=== PATIENT | male | born 1940 | race Two or more races ===

== ENCOUNTER → 2016-12-24 19:53 | Emergency (ER) | payer SELFPAY ==
[~2016-12-24 19:53] MED LIST: Amiodarone 150 MG IVPREMIX* 150 MG/100 ML BAG IV ONE; CALCIUM GLUCONATE* 1 GM/10 ML VIAL (in Pyxis) ONE; Dextrose 50% Syringe 50 ML* 25 GM/50 ML SYRINGE IV PUSH ONE; Heparin 2 UNITS/ML IVPREMIX* 0 ML IV ONE; Insulin REGULAR(*) 1 UNITS UNIT IV PUSH ONE; Iodixanol* (CONTRAST) 320 MG/ML 100 ML SDV IV ONE; Iohexol 350 (CONTRAST) 200 ML MDV IV ONE; Lidocaine 1% INJ* 10 MG/ML 30 ML SDV ONE; Midazolam* 1 MG/ML 5 ML VIAL (5 MG) ONE; fentaNYL* 50 MCG/ML 2 ML VIAL (100 MCG VIAL) ONE; nitroGLYCERIN DRIP* 0 ML ONE
[2016-12-24 20:15] LABS: Hematocrit 42 % (42-52); Hemoglobin 13.9 g/dl (14.0-18.0); Mean Corpuscular HGB Conc 33 g/dl (31-36); Mean Corpuscular Hemoglobin 29 pg (27-31); Mean Corpuscular Volume 87 fL (80-94); Mean Platelet Volume 9 um3 (7.4-10.4); Red Blood Count 4.86 10^6/ul (4.0-5.4); Red Cell Distribution Width 16 % (10.5-15); White Blood Count 11.4 10^3/ul (3.5-10.8)
[2016-12-24 20:31] LABS: ALT 27 U/L (7-52); AST 31 U/L (13-39); Albumin 3.4 g/dL (3.2-5.2); Alkaline Phosphatase 77 U/L (34-104); BUN/Creatinine Ratio 14.7 (8-20); Blood Urea Nitrogen 107 mg/dL (6-24); CO2 Carbon Dioxide 15 mmol/L (22-32); Calcium 9.6 mg/dL (8.6-10.3); Chloride 89 mmol/L (101-111); Creatine Kinase 103 U/L (10-223); EGFR African American 9.5 (>60); EGFR Non-African American 7.4 (>60); Globulin 2.8 g/dL (2-4); Glucose 174 mg/dL (70-100); Sodium 120 mmol/L (133-145); Total Protein 6.2 g/dL (6.4-8.9)
[2016-12-24 20:33] LABS: Anion Gap 16 mmol/L (2-11); Potassium 6.4 mmol/L (3.5-5.0)
[2016-12-24 20:38] LABS: Alcohol < 10 mg/dL (<10)
[2016-12-24 20:49] LABS: Magnesium 2.6 mg/dL (1.9-2.7)
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
[2016-12-24 21:17] LABS: Erythrocyte Sed Rate 24 mm/Hr (0-40); Troponin I 0.03 ng/mL (<0.04)
[2016-12-24 21:32] VITALS: BP 138/86
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
== END | disposition short-term general hospital (02) ==
LOC: ED 19:53
DX: S37.29XA Other injury of bladder, initial encounter (principal); E87.5 Hyperkalemia; N19 Unspecified kidney failure; V49.9XXA Car occupant (driver) (passenger) injured in unspecified traffic accident, initial encounter; Y93.9 Activity, unspecified; Y92.89 Other specified places as the place of occurrence of the external cause; Z92.21 Personal history of antineoplastic chemotherapy
CPT/HCPCS: 36415; 70450; 71260; 72125; 74177; 80053; 80320; 82550; 82553; 83605; 83735; 84484; 85025; 85610; 85652; 86141; 93005; 99284; G0480; J0282; J0610; J1644; J2001; J2250; J3010; Q9967

== ENCOUNTER 2017-01-18 18:01 | Emergency (ER) | payer MEDICARE, OTHER ==
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
[2017-01-18 19:40] VITALS: BP 100/69
== END 2017-01-18 19:41 | disposition left against medical advice (07) ==
LOC: UCCORT 18:01
DX: M54.9 Dorsalgia, unspecified (principal); I95.9 Hypotension, unspecified; R00.0 Tachycardia, unspecified; Z87.891 Personal history of nicotine dependence; Z79.82 Long term (current) use of aspirin
CPT/HCPCS: 99212; G0463

== ENCOUNTER 2017-01-18 20:19 | Emergency (ER) | payer OTHER ==
[2017-01-18] MEDS ORDERED: Ketorolac INJ* 60 MG/2 ML VIAL IM ONE (21:48)
[2017-01-18] MEDS ORDERED: LORazepam TAB(*) 1 MG PO ONE (21:48)
[2017-01-18 22:32] LABS: Urine Bacteria Absent (Absent); Urine Bilirubin Negative (Negative); Urine Glucose Negative (Negative); Urine Nitrite Negative (Negative)
[2017-01-18] MEDS ORDERED: Ciprofloxacin TAB* 500 MG PO ONE ×3 (22:52→23:21)
[2017-01-18] MEDS ORDERED: CIPROFLOXACIN 400 MG IVPB ONE (23:00)
[2017-01-18 23:24] LABS: Hematocrit 39 % (42-52); Hemoglobin 12.8 g/dl (14.0-18.0); Mean Corpuscular HGB Conc 33 g/dl (31-36); Mean Corpuscular Hemoglobin 29 pg (27-31); Mean Corpuscular Volume 87 fL (80-94); Mean Platelet Volume 7 um3 (7.4-10.4); Red Blood Count 4.47 10^6/ul (4.0-5.4); Red Cell Distribution Width 15 % (10.5-15)
[2017-01-18 23:47] LABS: BUN/Creatinine Ratio 23.3 (8-20); C Reactive Protein 27.28 mg/L (< 5.00); Calcium 8.5 mg/dL (8.6-10.3); EGFR African American 135.1 (>60); Potassium 4.3 mmol/L (3.5-5.0); Total Bilirubin 0.5 mg/dL (0.2-1.0)
[2017-01-19 00:45] VITALS: BP 112/86
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
== END 2017-01-19 00:44 ==
LOC: ED 20:19
DX: N39.0 Urinary tract infection, site not specified (principal); N12 Tubulo-interstitial nephritis, not specified as acute or chronic; Z85.820 Personal history of malignant melanoma of skin; Z87.891 Personal history of nicotine dependence
CPT/HCPCS: 36415; 72131; 80053; 81003; 81015; 85025; 86140; 87077; 87086; 87186; 96372; 99283; A9270-GY; J1885

== ENCOUNTER 2017-04-02 12:23 | Emergency (ER) | payer MEDICARE ==
[2017-04-02 12:55] VITALS: BP 98/68
--- NOTE | 2017-04-02 14:22 | UC ---
Complaint Male HPI - HPI Summary HPI Summary: Patient presents with complaints of decreased marin catheter output since last night. He also notes that he has notice increased sediment in the bag as well. He denies fever, chills, nausea, vomiting, flank or abdominal pain. He is scheduled to see Dr. King in two weeks for follow up and evaluation for prostate surgery. - History of Current Complaint Chief Complaint: UCGU Stated Complaint: URINARY ISSUE Time Seen by Provider: 04/02/17 13:26 Hx Obtained From: Patient Onset/Duration: Gradual Onset, Lasting Days Timing: Constant Severity Initially: Mild Severity Currently: Mild Location: Suprapubic Character: Constant Pressure Aggravating Factor(s): Other - catheter not draining. Associated Signs And Symptoms: Positive: Negative - Risk Factors Testicular Torsion: Negative - Allergies/Home Medications Allergies/Adverse Reactions: Allergies Allergy/AdvReac Type Severity Reaction Status Date / Time Bee Venom Allergy Severe Swelling Verified 01/18/17 19:01 Of Face,Lips,& Throat PMH/Surg Hx/FS Hx/Imm Hx Previously Healthy: Yes - Surgical History Surgical History: Yes Surgery Procedure, Year, and Place: Melanoma excision left shoulder and lymph nodes from left axilla. PowerPort placement 05/2016. Bladder Rupture 12/2016 - Family History Known Family History: Negative: Cardiac Disease, Renal Disease - Social History Occupation: Retired Lives: Alone Alcohol Use: None Substance Use Type: None Smoking Status (MU): Former Smoker Review of Systems Constitutional: Negative Skin: Negative Eyes: Negative ENT: Negative Respiratory: Negative Cardiovascular: Negative Gastrointestinal: Negative Genitourinary: Other - urinary retention Motor: Negative Neurovascular: Negative Musculoskeletal: Negative Neurological: Negative Psychological: Negative All Other Systems Reviewed And Are Negative: Yes Physical Exam Triage Information Reviewed: Yes Vital Signs: Initial Vital Signs Temp 98.1 F 04/02/17 12:44 Pulse 111 04/02/17 12:44 Resp 16 04/02/17 12:44 BP 98/68 04/02/17 12:44 Pulse Ox 98 04/02/17 12:44 Eye Exam: Normal ENT Exam: Normal Neck exam: Normal Neck: Positive: 1 Respiratory Exam: Normal Cardiovascular Exam: Normal Abdominal Exam: Normal Musculoskeletal Exam: Normal Neurological Exam: Normal Psychological Exam: Normal Skin Exam: Normal Complaint Male Course/Dx - Course Course Of Treatment: Patient present with marin catheter in place for one month due to BPH. He is scheduled to see Dr. King in two weeks. In the meantime he has been having sediment and decreased marin drainage. He was told to come to the Urgent care and have the catheter replaced. He has a 18 georgian on arrival, we did not have an 18 georgian, so he agreed to a 16 frech which was changed without incidence. He was instructed to follow up as scheduled. A ua was no obtained as the UA would be contaminated. He does not have any symtpoms consistent with urosepsis. Normal vital signs, and afebile. - Differential Dx/Diagnosis Differential Diagnosis/HQI/PQRI: Other - marin catheter care Provider Diagnoses: marin catheter care Discharge - Discharge Plan Condition: Stable Disposition: HOME Patient Education Materials: Marin Catheter Placement and Care (ED) Referrals: Miriam Campos NP [Primary Care Provider] -
== END 2017-04-02 14:47 | disposition home or self-care (01) ==
LOC: UCEAST 12:23
DX: Z46.6 Encounter for fitting and adjustment of urinary device (principal)
CPT/HCPCS: 99211; G0463

== ENCOUNTER → 2018-04-22 10:06 | Day surgery (SDC) | payer MEDICARE ==
[~2018-04-22 10:06] MED LIST changes: -Amiodarone 150 MG IVPREMIX* 150 MG/100 ML BAG IV ONE; -CALCIUM GLUCONATE* 1 GM/10 ML VIAL (in Pyxis) ONE; -Dextrose 50% Syringe 50 ML* 25 GM/50 ML SYRINGE IV PUSH ONE; +Flumazenil* 0.1 MG/ML 5 ML MDV ONE; -Heparin 2 UNITS/ML IVPREMIX* 0 ML IV ONE; +Heparin 2 UNITS/ML IVPREMIX* 2,000 ML IV ONE; -Insulin REGULAR(*) 1 UNITS UNIT IV PUSH ONE; +Iodixanol 320 (CONTRAST) 100 ML SDV ONE; -Iodixanol* (CONTRAST) 320 MG/ML 100 ML SDV IV ONE; +Ketorolac INJ* 30 MG/ML 1 ML VIAL ONE; +LORazepam TAB(*) 1 MG ONE; +Midazolam* 1 MG/ML 10 ML VIAL (10 MG) ONE; -Midazolam* 1 MG/ML 5 ML VIAL (5 MG) ONE; +Naloxone* 0.4 MG/ML 1 ML VIAL ONE; +Ondansetron INJ* 2 MG/ML VIAL ONE; +nitroGLYCERIN DRIP* 0 MCG/0 ML BTL ONE; -nitroGLYCERIN DRIP* 0 ML ONE
[2018-04-22 11:45] LABS: INR 0.9 (0.77-1.02)
[2018-04-22 11:48] LABS: EGFR Non-African American 63.9 (>60)
[2018-04-22 16:39] VITALS: BP 147/108
--- NOTE | 2018-04-23 17:54 | RAD ---
CPT II Codes: G9500 Procedures performed: 1. Superior vena cavogram and venography of the left central veins. 2. Balloon angioplasty of the left brachiocephalic, left subclavian and left axillary veins. 3. Removal of left subclavian vein Mediport. Date of service: April 22, 2018 Indication for procedure: 1. Fractured left subclavian vein Mediport in a patient with a history of melanoma. 2. 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 Comparison: Left subclavian vein port study dated April 04, 2018 Contrast: 40 mL of Visipaque 320 Fluoroscopy Time: 11 minutes Vessels Accessed & Imaged: Percutaneous access was obtained with ultrasound guidance in the right common femoral vein in the antegrade direction (i.e., towards the heart). A sonographic image was recorded. The left subclavian vein Mediport was accessed and injected directly as well. Catheter venography was performed with the catheter tip located in the superior vena cava, left subclavian vein and left axillary vein. Catheter venography was acquired of the superior vena cava and left central veins including the brachiocephalic vein, left subclavian vein and left axillary vein. Anesthesia: Conscious sedation was provided by intravenous fentanyl and Versed. Continuous cardiopulmonary monitoring was performed by Dr. Tejeda and the interventional radiology nurse. 1% lidocaine injected locally at the venotomy site. Conscious sedation time: Timeout: 1311 hours Case and: 1444 hours Conscious sedation time: 1 hour and 33 minutes Additional medications: None Procedure narration and imaging findings: Prior to the procedure the risk, benefits and alternative therapies were carefully explained and informed consent was obtained from the patient. The patient was appropriately positioned on the table in the angiography suite. A formal time out was performed and all members of the team and the patient agreed to the patient, procedure and laterality. Preliminary ultrasound indicated a patent right common femoral vein. The skin overlying the right common femoral vein and overlying the left upper chest Mediport was prepped and draped in standard sterile fashion. Sterile precautions were employed including use of cap, mask, gown and sterile gloves. The skin overlying the femoral vein was anesthetized with 1% lidocaine. Real time ultrasound imaging shows the femoral vein is patent and determined to be adequate for cavography and venography. Utilizing real time ultrasound visualization the femoral vein was accessed with an 18 gauge needle. An image was recorded and saved confirming appropriate intraluminal position of the needle tip. Blood return further confirmed position. Under fluoroscopic control a 0.035" wire was advanced to the superior vena cava. The needle was removed, exchanged for a 7 [place] access sheath and a 5 [place] curved tip catheter was advanced over the 0.035 inch Bentson wire to the superior vena cava. Preliminary imaging of the left upper chest again demonstrates the left subclavian vein Mediport with at least 2 kinks in the catheter and the tip retracted into the left brachiocephalic vein. This appearance is stable compared to the April 04, 2018 Mediport study. The wire was removed and contrast was injected with the tip of the catheter in the superior vena cava to locate the ostium of the left brachiocephalic vein. This first injected demonstrated stenosis at the medial most margin of the left brachiocephalic vein. Utilizing a combination of a 0.035 inch hydrophilic wire and the 5-[place] curved tip catheter the wire and catheter were advanced to the left axillary vein. The wire was removed and contrast venography through the catheter with the tip in the left axillary vein demonstrates wide patency of the axillary vein with reflux into the cephalic vein and other venous collaterals overlying the left shoulder. There is essentially occlusion at the left subclavian vein where the Mediport catheter enters the vein. More delayed imaging shows slow flow in the peripheral portion of the axillary vein and pooling of contrast in the left upper chest venous collaterals with slow return of the injected contrast to the SVC via the collaterals. At this point the procedure access across the occluded left subclavian vein was secured with the hydrophilic wire and 5-[place] catheter. The catheter wire were secured in position and the groin was covered with a sterile drape. At this point attention was turned to removal of the left upper chest Mediport. The goal of the procedure was 2 remove the Mediport is entirety and avoid necessitating snare capture of the fractured Mediport catheter. LEFT UPPER CHEST The skin overlying the mediport was anesthetized with 1% lidocaine. An incision was made just above the palpated mediport. Utilizing blunt dissection the the Mediport was located and exposed. An 18-gauge needle was inserted into the port and contrast venography was performed again demonstrating leakage of contrast in the left subclavian vein soft tissues just outside the left subclavian venotomy. Contrast is also seen exiting the catheter at its distal portion indicating fracture of the catheter and there is also a small amount of contrast leaving the tip as well. Filling defects surrounding the catheter are consistent with fibrin sheath formation as was seen on the prior catheter study. The needle was removed, the port more thoroughly dissected and the Mediport was removed in its entirety taking care to secure the catheter still located in the left upper chest subcutaneous tissue and the left subclavian vein. Attempt was made to wire cannulate the catheter unsuccessfully as there was a highly stenotic portion of the catheter at the midportion that the wire would not pass. The superficial most portion of the catheter was gently dissected and under fluoroscopic control the catheter was mobilized and removed from the body intact under fluoroscopic control. Gross inspection of the mediport, cuff and catheter indicated that all portions had been removed entirely. The "0 end" of the catheter was identified indicating no portion of the catheter remained in the patient's body. Inspection of the catheter shows multiple fractures in the midportion and central most third of the catheter as well as a tight kink in the lateral third of the catheter. The pocket was flushed with copious amounts of sterile saline and inspected for any significant bleeding. Satisfied there was no significant bleeding the incision was sutured closed with interrupted 3-0 polyfilament absorbable suture. The incision was sealed with Mastisol and Steri-Strips. After that was allowed to dry, the site was dressed with sterile gauze and Tegaderm. RIGHT COMMON FEMORAL VENOTOMY With the Mediport removed in its entirety and hemostasis achieved at the left upper chest and subclavian venotomy, we returned to the patient's right common femoral venotomy to reestablish patency of the occluded left subclavian vein. Over the previously placed 0.035 inch wire a 5 mm x 120 mm Biotronik balloon was advanced across the stenotic and occluded left subclavian and axillary veins and balloon angioplasty was performed. Multiple stenoses were visible in the course of inflation. The balloon was inflated just below burst pressure corresponding to an approximate diameter of 5.5 mm. The balloon remained inflated for a total of 3 minutes to address vasospasm. The patient did not express much discomfort during balloon angioplasty indicating a larger caliber balloon could be utilized. A 5 mm balloon was removed and replaced with an 8 mm x 80 mm Biotronik balloon. Balloon angioplasty was performed across the left brachiocephalic vein, subclavian vein and axillary vein. The balloon was inflated just below burst pressure corresponding to a diameter measurement of approximately 8.5 mm. During each of the 2 inflations the balloon remained inflated for 3 minutes to address vasospasm. Over the wire the catheter was reinserted into the axillary vein and contrast venography was performed which demonstrated improved patency through the previously occluded left subclavian vein though collaterals were still filling to a certain extent. The 8 mm balloon was reinserted and balloon angioplasty was performed a second time across the left subclavian vein for a total of 3 minutes. A final venogram demonstrated improved patency through the subclavian vein and no evidence of active extravasation. The catheter and wire were removed together. The sheath was then removed and direct pressure was held on the common femoral vein access site for 15 minutes. The site was dressed with sterile gauze and the patient left the angiography suite in stable condition. SUMMARY OF PROCEDURE AND IMAGING FINDINGS: 1. Diagnostic studies performed: * Venous access was obtained at the right common femoral vein in the antegrade direction (i.e. towards the heart) with ultrasound guidance. A sonographic image was recorded. * Diagnostic catheter superior vena cavography and and venography of the left brachiocephalic vein, left subclavian vein and left axillary vein including branch collaterals. * Contrast was injected into the left subclavian vein Mediport. * Catheter venography was performed with the catheter tip in the following veins: * Inferior vena cava * Left brachiocephalic vein * Left subclavian vein * Left axillary vein 2. 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 The subclavian vein occlusion is further supported by filling of superficial venous collaterals when injecting the left axillary vein. * As was seen on the prior Mediport contrast study, there is fibrin sheath formation around the catheter. * Fracture of the catheter is evidenced by contrast leaking from the side of the catheter and into the subcutaneous tissue adjacent to the subclavian vein when injecting the Mediport. This imaging finding was later confirmed during direct visual inspection of the removed Mediport catheter. 3. Surgical interventions performed: * Removal of left subclavian vein Mediport in its entirety. * Balloon angioplasty of the left brachiocephalic vein, left subclavian vein and midline left axillary vein with a 5 mm x 120 mm Biotronik balloon followed by a 8 mm x 80 mm Biotronik balloon. The 8 mm balloon was inflated just beneath the burst pressure corresponding to an approximate diameter of 8.5 mm. 4. Interpretation of interventions performed: * The Mediport was removed in its entirety as demonstrated with live fluoroscopy. Direct visual inspection confirmed or fracture at the intravascular midline portion of the catheter. * Following balloon venoplasty there was protestant of flow through the occluded left subclavian vein with flow documented through the previously stenotic portions of the left axillary vein, left subclavian vein and left brachiocephalic vein. Plan: In approximately 2 weeks the patient will receive a new Mediport, likely in one of the internal jugular veins, so he can continue his melanoma chemotherapy.
== END | disposition home or self-care (01) ==
LOC: CHICATH 10:06
PROVIDERS: ATTEND Radiology Diagnostic Radiology
DX: T82.898A Other specified complication of vascular prosthetic devices, implants and grafts, initial encounter (principal); C43.59 Malignant melanoma of other part of trunk; Z87.891 Personal history of nicotine dependence; K21.9 Gastro-esophageal reflux disease without esophagitis; E78.5 Hyperlipidemia, unspecified; I10 Essential (primary) hypertension; E05.90 Thyrotoxicosis, unspecified without thyrotoxic crisis or storm; Y82.8 Other medical devices associated with adverse incidents; Y92.9 Unspecified place or not applicable
CPT/HCPCS: 36415; 36590; 37249; 76937; 80048; 85610; 85730; 88300; 99156; 99157; A9270-GY; C1725; C1769; C1887; J1644; J1885; J2250; J2310; J2405; J3010

== ENCOUNTER 2019-01-11 13:16 | Emergency (ER) | payer MEDICARE ==
--- NOTE | 2019-01-11 14:03 | ED ---
Dizziness - HPI Summary HPI Summary: Pt is an 78 y/o M presenting to the ED with a chief complaint of fatigue. He states he has become steadily more fatigued over the past week, and he is pale. No chest pain, shortness of breath. He denies rectal bleeding, abd pain, vomiting, CP, and SOB. He notes hx of melanoma with metastasis to his stomach, intestines, and L lung. He has been through 3 rounds of chemotherapy, and is about to start his fourth. He had lab work done his primary care doctor earlier showing Hb 7.4. - History Of Current Complaint Chief Complaint: EDWeakness Stated Complaint: LIGHT HEADEACE , ABD PIAN, Time Seen by Provider: 01/11/19 13:33 Hx Obtained From: Patient Onset/Duration: Still Present, Gradually Timing: Hours Severity Initially: Moderate Severity Currently: Moderate Character: Weak Aggravating Factor(s): Nothing Alleviating Factor(s): Nothing Associated Signs And Symptoms: Positive: Other: - pale. Negative: Vomiting, Chest Pain, SOB - Allergies/Home Medications Allergies/Adverse Reactions: Allergies Allergy/AdvReac Type Severity Reaction Status Date / Time bee venom protein (honey bee) Allergy Anaphylatic Verified 10/27/18 13:59 Shock Home Medications: Home Medications Aspirin EC TAB* [Ecotrin EC Low Dose 81 MG*] 81 mg PO DAILY 01/11/19 [History Confirmed 01/11/19] Ferrous Sulfate TAB* 325 mg PO DAILY 01/11/19 [History Confirmed 01/11/19] Hydrochlorothiazide TAB* [Hydrodiuril TAB*] 25 mg PO DAILY 01/11/19 [History Confirmed 01/11/19] Ibuprofen TAB* [Motrin TAB* 600 MG] 600 mg PO Q6H PRN 01/11/19 [History Confirmed 01/11/19] Levothyroxine TAB* [Synthroid TAB*] 125 mcg PO DAILY 01/11/19 [History Confirmed 01/11/19] Naproxen TAB* [Naprosyn 250 mg TAB*] 500 mg PO Q8H PRN 01/11/19 [History Confirmed 01/11/19] Ondansetron TAB* [Zofran 4 MG Tab*] 8 mg PO Q6H PRN 01/11/19 [History Confirmed 01/11/19] Prochlorperazine TAB* [Compazine Tab*] 10 mg PO Q6H PRN 01/11/19 [History Confirmed 01/11/19] Ranitidine TAB (NF) [Zantac TAB (NF)] 150 mg PO BID 01/11/19 [History Confirmed 01/11/19] oxyCODONE TAB* [Roxycodone TAB 5 mg*] 5 mg PO Q6H PRN 01/11/19 [History Confirmed 01/11/19] traZODone TAB* [Desyrel TAB*] 50 - 100 mg PO BEDTIME PRN 01/11/19 [History Confirmed 01/11/19] PMH/Surg Hx/FS Hx/Imm Hx Previously Healthy: Yes Endocrine/Hematology History: Denies: Hx Diabetes Cardiovascular History: Reports: Hx Hypertension Denies: Hx Pacemaker/ICD Respiratory History: Denies: Hx Chronic Obstructive Pulmonary Disease (COPD) History: Denies: Hx Dialysis, Hx Renal Disease Sensory History: Denies: Hx Hearing Aid Psychiatric History: Denies: Hx Panic Disorder - Cancer History Cancer Type, Location and Year: Melanoma 05/2016 Hx Chemotherapy: No Hx Radiation Therapy: No - Surgical History Surgery Procedure, Year, and Place: Melanoma excision left shoulder and lymph nodes from left axilla. PowerPort placement 05/2016 AND REPLACED 07/2018. Bladder Rupture 12/2016. PROSTECTOMY 04/2017 Infectious Disease History: No Infectious Disease History: Denies: Traveled Outside the [place] in Last 30 Days - Family History Known Family History: Negative: Cardiac Disease, Renal Disease - Social History Alcohol Use: None Hx Substance Use: No Substance Use Type: Reports: None Hx Tobacco Use: Yes Smoking Status (MU): Former Smoker Review of Systems Positive: Fatigue Negative: Chest Pain Negative: Shortness Of Breath Negative: Abdominal Pain, Vomiting, Other - rectal bleeding Positive: Other - pale All Other Systems Reviewed And Are Negative: Yes Physical Exam - Summary Physical Exam Summary: Constitutional: elderly male, NAD Skin: Warm, Dry, well-healed incision to L thoracic back HENT: Normocephalic; Atraumatic Eyes: Conjunctiva pale Neck: Musculoskeletal ROM normal neck. (-) JVD, (-) Stridor Cardio: Rhythm regular, rate normal, Heart sounds normal; Intact distal pulses; Radial pulses are 2+ and symmetric. (-) Murmur Pulmonary/Chest wall: Effort normal. (-) Respiratory distress, (-) Wheezes, (-) Rales Abd: Soft, (-) tenderness, (-) Distension, (-) Guarding, (-) Rebound Musculoskeletal: Port to right chest wall without erythema or tenderness. (-) Edema Lymph: (-) Cervical adenopathy Neuro: Alert, Oriented x3 Psych: Mood and affect Normal Triage Information Reviewed: Yes Vital Signs On Initial Exam: Initial Vitals Temp Pulse Resp BP Pulse Ox 99.3 F 102 14 82/56 96 01/11/19 13:17 01/11/19 13:17 01/11/19 13:17 01/11/19 13:17 01/11/19 13:17 Vital Signs Reviewed: Yes Diagnostics - Vital Signs Vital Signs Temp Pulse Resp BP Pulse Ox 01/11/19 13:17 99.3 F 102 14 82/56 96 - Laboratory Result Diagrams: 01/11/19 14:19 Lab Statement: Any lab studies that have been ordered have been reviewed, and results considered in the medical decision making process. - EKG 1339 Cardiac Rate: Tachycardia - 101bpm EKG Rhythm: Sinus Tachycardia ST Segment: Normal Ectopy: None Summary of EKG Findings: EKG at 1339 shows sinus tachycardia at 101bpm with old LBBB, nml axis, nml intervals, no STEMI, and no acute changes. Dizzy Course/Dx - Course Course Of Treatment: 78-year-old male with a history of metastatic melanoma on active chemotherapy presents with fatigue. - Physical exam of pill conjunctiva , topically hemoglobin 7.4 down from prior of 8.8 2 weeks ago. Patient reports that his baseline is around 10. No active signs of bleeding noted on exam patient denies rectal bleeding. Plan for admit to oncology service and transfusion given that patient is symptomatic. Will also check troponin for evidence of end organ damage. EKG shows old left bundle branch block - Diagnoses Provider Diagnoses: Anemia, Fatigue Discharge - Sign-Out/Discharge Documenting (check all that apply): Patient Departure - Discharge Plan Condition: Stable Disposition: ADMITTED TO [facility] Referrals: Amita Leigh NP [Primary Care Provider] - - Billing Disposition and Condition Condition: STABLE Disposition: Admitted to [facility] - Attestation Statements Document Initiated by Scribe: Yes Documenting Scribe: Tessie Joshi Provider For Whom Scribe is Documenting (Include Credential): Yokasta Montesinos MD. Scribe Attestation: ITessie, scribed for Yokasta Montesinos MD. on 01/11/19 at 1453. Scribe Documentation Reviewed: Yes Provider Attestation: The documentation as recorded by the scribe, Tessie Joshi accurately reflects the service I personally performed and the decisions made by me, Yokasta Montesinos MD. Status of Scribe Document: Viewed Consult Consult: 1404 - Dr. Wright aware of the patient. 1448 - Dr. Wright accepts pt to [facility] [place].
[2019-01-11 14:51] LABS: Albumin 2.8 g/dL (3.2-5.2); Albumin/Globulin Ratio 1.1 (1-3); BUN/Creatinine Ratio 23.9 (8-20); Calcium 8.1 mg/dL (8.6-10.3); EGFR African American 130.5 (>60); EGFR Non-African American 107.9 (>60); Globulin 2.5 g/dL (2-4); Potassium 3.7 mmol/L (3.5-5.0); Total Bilirubin 0.3 mg/dL (0.2-1.0); Total Protein 5.3 g/dL (6.4-8.9); Troponin I 0.01 ng/mL (<0.04)
--- NOTE | 2019-01-11 17:18 | PN ---
Progress Note - Progress Note Date of Service: 01/11/19 SOAP: Subjective: []Presented to the ER today d/t feeling lightheaded and faint. "Like someone opened the drain and let half out." Denies chest pain and pressure. No overt SOB, but no energy to do much. No HAs. No falls. Intermittent abd. pain. Hmg on AM labs <8 and received 1 unit PRBCs in ER. "I feel a lot better." Initially told ER team he wanted to stay in hospital, however to this chief underwriter states he feels safe to go home. "What would you do for me here....? Do I need to stay?" Home Medications: Medication Instructions Recorded Confirmed Type Finasteride TAB* [Proscar TAB*] 5 mg PO DAILY 12/24/16 01/11/19 History Lisinopril TAB* [Prinivil TAB*] 10 mg PO DAILY 12/24/16 01/11/19 History Pravastatin (NF) [Pravachol (NF)] 20 mg PO 1700 12/24/16 01/11/19 History LORazepam TAB(*) [Ativan 0.5 MG 0.5 mg PO TID PRN 01/18/17 01/11/19 History TAB (*)] Aspirin EC TAB* [Ecotrin EC Low 81 mg PO DAILY 01/11/19 01/11/19 History Dose 81 MG*] Ferrous Sulfate TAB* 325 mg PO DAILY 01/11/19 01/11/19 History Hydrochlorothiazide TAB* 25 mg PO DAILY 01/11/19 01/11/19 History [Hydrodiuril TAB*] Ibuprofen TAB* [Motrin TAB* 600 MG] 600 mg PO Q6H PRN 01/11/19 01/11/19 History Levothyroxine TAB* [Synthroid TAB*] 125 mcg PO DAILY 01/11/19 01/11/19 History Naproxen TAB* [Naprosyn 250 mg 500 mg PO Q8H PRN 01/11/19 01/11/19 History TAB*] Ondansetron TAB* [Zofran 4 MG Tab*] 8 mg PO Q6H PRN 01/11/19 01/11/19 History Prochlorperazine TAB* [Compazine 10 mg PO Q6H PRN 01/11/19 01/11/19 History Tab*] Ranitidine TAB (NF) [Zantac TAB 150 mg PO BID 01/11/19 01/11/19 History (NF)] oxyCODONE TAB* [Roxycodone TAB 5 5 mg PO Q6H PRN 01/11/19 01/11/19 History mg*] traZODone TAB* [Desyrel TAB*] 50 - 100 mg PO BEDTIME PRN 01/11/19 01/11/19 History Objective: [] Vital Signs Temp Pulse Resp BP Pulse Ox 99.3 F 87 21 98/66 100 01/11/19 13:17 01/11/19 16:30 01/11/19 16:00 01/11/19 16:30 01/11/19 16:30 A&Ox3, EOMI, communicating clearly, neuro grossly non-focal HRR, S1S2 LS clear biltat. +BS, abd. softly distended, non-tender Laboratory Results - last 24 hr 01/11/19 01/11/19 14:19 14:19 Sodium 129 L Potassium 3.7 Chloride 97 L Carbon Dioxide 23 Anion Gap 9 BUN 17 Creatinine 0.71 Est GFR ( Amer) 130.5 Est GFR (Non-Af Amer) 107.9 BUN/Creatinine Ratio 23.9 H Glucose 156 H Calcium 8.1 L Total Bilirubin 0.30 AST 13 ALT 15 Alkaline Phosphatase 62 Troponin I 0.01 Total Protein 5.3 L Albumin 2.8 L Globulin 2.5 Albumin/Globulin Ratio 1.1 Blood Type O Positive Antibody Screen Negative Crossmatch See Detail Assessment/Plan: []Mr. Cohen is a 78 yo with end stage melanoma currently treated with palliative Temodar s/p C3 with mixed response by recent CT showing increase in known abd. mass albeit with a clinical decrease in palpable nodules; decision to proceed with C4 (D1 01/16) and then repeat imaging in January where at that time if he has further progression he will pursue hospice. He presented to the ER today with fatigue secondary to recurrent anemia that is suspected to be secondary to bleeding abd. tumor. Following one unit of blood he tells me he feels better and assures me he is safe for discharge home. I feel this is very reasonable given limited acute needs and palliative focus of care. He will have repeat labs drawn on 01/13 (via home draw set up by our office) and f/u as previously planned. He assures me he will call our office for further S/S anemia.
[2019-01-11 18:02] VITALS: BP 104/67
== END 2019-01-11 18:27 | disposition home or self-care (01) ==
LOC: ED 13:16
DX: D64.9 Anemia, unspecified (principal); R53.83 Other fatigue; R00.0 Tachycardia, unspecified; I44.7 Left bundle-branch block, unspecified; C43.59 Malignant melanoma of other part of trunk; C78.89 Secondary malignant neoplasm of other digestive organs; C78.02 Secondary malignant neoplasm of left lung; I10 Essential (primary) hypertension; Z79.82 Long term (current) use of aspirin; Z91.030 Bee allergy status; Z87.891 Personal history of nicotine dependence
CPT/HCPCS: 36415; 36430; 80053; 84484; 86850; 86900; 86901; 86922; 93005; 96372; 99283; J1642; P9040

== ENCOUNTER 2019-01-22 10:27 | Emergency (ER) | payer MEDICARE ==
[2019-01-22] MEDS ORDERED: NS 0.9% 1000 ML** 1,000 ML IV ONE (10:51)
--- NOTE | 2019-01-22 11:14 | ED ---
Complex/Multi-Sys Presentation - HPI Summary HPI Summary: Pt was last in ED on 01/11/19. Pts BP in triage was 78/56. This patient is a 78 year old M presenting to [facility] accompanied by son with a chief complaint of general weakness for the past couple days. Pt had an advanced stage melanoma on back that was diagnosed as metastatic recently, and he was going to chemotherapy. After his 5th session of chemotherapy he received a blood transfusion. After the transfusion pt was feeling fine and then he started to feel unwell again. Pt has tumor in his lungs and abdomen. Patient reports vomiting (01/21/19), loss of appetite (Pt only has a bottle of boost in the morning and later in the day), nml BM (dark in color) and dizziness on exertion. Patient denies fever, CP, rectal bleeding, blood in vomit, SOB. Pt has not fallen. Vital signs while in room: HR 96 bpm, BP 93/56, O2 sat 100%. While sitting up HR 95 bpm, BP 87/90. Pt has a power port. Dr. Blackmon is patients primary oncologist. Hemoglobin reduced from 8.8 to 7.4 from 01/04/19 to 01/11/19. Per evaluation by Chrissy Marks NP, recent CT showed tumor in abdomen s/p C3 with mixed response. Pt is due for repeat imaging in January after C4 chemotherapy.. Anemia 01/11/19 was suspected to be due to bleeding abdominal tumor. Home Medications Medication Instructions Recorded Confirmed Type Finasteride TAB* [Proscar TAB*] 5 mg PO DAILY 12/24/16 01/11/19 History Lisinopril TAB* [Prinivil TAB*] 10 mg PO DAILY 12/24/16 01/11/19 History Pravastatin (NF) [Pravachol (NF)] 20 mg PO 1700 12/24/16 01/11/19 History LORazepam TAB(*) [Ativan 0.5 MG 0.5 mg PO TID PRN 01/18/17 01/11/19 History TAB (*)] Aspirin EC TAB* [Ecotrin EC Low 81 mg PO DAILY 01/11/19 01/11/19 History Dose 81 MG*] Ferrous Sulfate TAB* 325 mg PO DAILY 01/11/19 01/11/19 History Hydrochlorothiazide TAB* 25 mg PO DAILY 01/11/19 01/11/19 History [Hydrodiuril TAB*] Ibuprofen TAB* [Motrin TAB* 600 MG] 600 mg PO Q6H PRN 01/11/19 01/11/19 History Levothyroxine TAB* [Synthroid TAB*] 125 mcg PO DAILY 01/11/19 01/11/19 History Naproxen TAB* [Naprosyn 250 mg 500 mg PO Q8H PRN 01/11/19 01/11/19 History TAB*] Ondansetron TAB* [Zofran 4 MG Tab*] 8 mg PO Q6H PRN 01/11/19 01/11/19 History Prochlorperazine TAB* [Compazine 10 mg PO Q6H PRN 01/11/19 01/11/19 History Tab*] Ranitidine TAB (NF) [Zantac TAB 150 mg PO BID 01/11/19 01/11/19 History (NF)] oxyCODONE TAB* [Roxycodone TAB 5 5 mg PO Q6H PRN 01/11/19 01/11/19 History mg*] traZODone TAB* [Desyrel TAB*] 50 - 100 mg PO BEDTIME PRN 01/11/19 01/11/19 History - History Of Current Complaint Chief Complaint: EDWeakness Hx Obtained From: Patient, Family/Zigzag Stitcher - son, Other: - Dr. Wright Onset/Duration: Gradual Onset, Lasting Days, Still Present Timing: Constant, Days Severity Currently: None - no pain Location: Pain At: - no pain Aggravating Factor(s): Nothing Alleviating Factor(s): Nothing Associated Signs And Symptoms: Positive: Dizziness, Vomiting, Decreased Oral Intake. Negative: SOB, Chest Pain, Fever, Other - neg - rectal bleeding, blood in vomit; Related History: Recent Illness - malignant metastatic melanoma - Allergies/Home Medications Allergies/Adverse Reactions: Allergies Allergy/AdvReac Type Severity Reaction Status Date / Time bee venom protein (honey bee) Allergy Anaphylatic Verified 02/05/19 11:48 Shock PMH/Surg Hx/FS Hx/Imm Hx Previously Healthy: No Endocrine/Hematology History: Denies: Hx Diabetes Cardiovascular History: Reports: Hx Hypertension Denies: Hx Pacemaker/ICD Respiratory History: Denies: Hx Chronic Obstructive Pulmonary Disease (COPD) History: Denies: Hx Dialysis, Hx Renal Disease Sensory History: Denies: Hx Hearing Aid Psychiatric History: Denies: Hx Panic Disorder - Cancer History Cancer Type, Location and Year: Melanoma 05/2016, metastatic 12/2018 Hx Chemotherapy: Yes - Surgical History Surgery Procedure, Year, and Place: Melanoma excision left shoulder and lymph nodes from left axilla. PowerPort placement 05/2016 AND REPLACED 07/2018. Bladder Rupture 12/2016. PROSTATECTOMY 04/2017 Infectious Disease History: No Infectious Disease History: Denies: Traveled Outside the [place] in Last 30 Days - Family History Known Family History: Negative: Cardiac Disease, Renal Disease - Social History Alcohol Use: None Hx Substance Use: No Substance Use Type: Reports: None Hx Tobacco Use: Yes Smoking Status (MU): Former Smoker Review of Systems Positive: Other - pos - loss of appetite. Negative: Fever Negative: Chest Pain Negative: Shortness Of Breath Positive: Vomiting. Negative: Other - neg - blood in vomit, neg rectal bleed Positive: Bruising Neurological: Negative Psychological: Normal All Other Systems Reviewed And Are Negative: Yes Physical Exam - Summary Physical Exam Summary: Appearance: Ill-appearing, no pain distress, well-nourished Skin: Warm, pale, dry, ecchymosis 7 cm on left hand dorsal surface on the first and second metacarpals. Head: Normal Head/Face inspection, atraumatic Eyes: Conjunctiva clear ENT: Normal inspection Neck: Supple, no nodes, no JVD Respiratory: Lungs clear, decreased breath sounds on right, no respiratory distress Cardio: RRR, No murmur, pulses normal, brisk capillary refill Abdomen: Soft, nontender, umbilical hernia, scar from umbilicus to suprapubic area. Bowel sounds: Present Musculoskeletal: Strength Intact/ROM intact, no calf tenderness, no edema. Scar in left lower thoracic area that is 13 cm and well healed. Psychological: Normal Neuro: Alert, muscle tone normal, no focal deficit Triage Information Reviewed: Yes Vital Signs On Initial Exam: Initial Vitals Temp Pulse Resp BP Pulse Ox 98.9 F 85 12 78/56 100 01/22/19 10:28 01/22/19 10:28 01/22/19 10:28 01/22/19 10:28 01/22/19 10:28 Vital Signs Reviewed: Yes Diagnostics - Vital Signs Vital Signs Temp Pulse Resp BP Pulse Ox 01/22/19 10:28 98.9 F 85 12 78/56 100 - Laboratory Result Diagrams: 01/22/19 11:14 01/22/19 11:14 Lab Statement: Any lab studies that have been ordered have been reviewed, and results considered in the medical decision making process. - Radiology CXR Radiology Interpretation Completed By: Radiologist Summary of Radiographic Findings: CXR reveals, per radiologist, IMPRESSION: 1. No acute cardiopulmonary process by radiograph. 2. Large hiatal hernia. 3. Right chest wall Mediport. ED physician has reviewed this radiology report. - EKG 1112 Cardiac Rate: Tachycardia EKG Rhythm: Sinus Tachycardia EKG Comparison: No Significant Change - 01/11/19 Summary of EKG Findings: EKG at 1112 reveals sinus tachycardia 92 bpm, nml AVCT , LBBB, nml QTc no acute changes. No change c/w 01/11/19. ED MD has reviewed and interpreted this EKG. Re-Evaluation - Re-Evaluation First Eval Re-Evaluation Time: 12:22 Change: Unchanged Comment: Discussed results and plans for transfusion. Complex Multi-Symp Course/Dx Course Of Treatment: 78 yo M with metastatic melanoma presents with generalized weakness. Pt has an abdominal tumor that is believed to be bleeding and causing his hemoglobin to decrease. Physical exam show an umbilical hernia on abdomen, and scar from umbilicus to suprapubic area. Pt also has a scar in left lower thoracic area that is 13 cm and well healed. He has decreased breath sounds on right, but is clear throughout. Pt has pale skin, and a ecchymosis of 7 cm on left hand dorsal surface on the first and second metacarpals. EKG at 1112 reveals sinus tachycardia 92 bpm, nml AV/IV CT, LBBB, nml QTc no acute changes from 01/11/19. ED MD has reviewed and interpreted this EKG. CXR reveals, per radiologist, IMPRESSION: 1. No acute cardiopulmonary process by radiograph. 2. Large hiatal hernia. 3. Right chest wall Mediport. ED physician has reviewed this radiology report. Pt medications reviewed this visit. Nurses notes reviewed. Allergies noted. Low blood pressure noted. Blood work obtained. Hemoglobin is 7.0, RBC is 2.9, Hct is 22, INR is 1.12, Sodium is 128, Chloride is 96, Glucose is 163, Calcium is 7.9, AST is 46, Total Creatine Kinase is <10, C-Reactive Protein is 119.00, B-Natriuretic Peptide is 185, Total Protein is 5.1, Albumin is 2.6. UA obtained, and shows no sign of infection. In the ED course the patient was given saline. Discussed pt case with Dr. Wright, and he believes pt should be transfused with 2 units of packed red blood cells. When he was last transfused on 01/11/19 his hemoglobin came up to 8.3. Patient will be discharged. Pt will go to outpatient services to receive the transfusion of 2 units prbcs. The patient is agreeable with this plan. - Diagnoses Provider Diagnoses: Anemia, Malignant melanoma, metastatic - Physician Notifications Discussed Care Of Patient With: Ehsan Wright Time Discussed With Above Provider: 11:37 Instructed by Provider To: Other - discharge to outpatient services to receive transfusion. - Critical Care Time Critical Care Time: 30-74 min Discharge ED - Sign-Out/Discharge Documenting (check all that apply): Patient Departure - Discharge Patient Received Moderate/Deep Sedation with Procedure: No - Discharge Plan Condition: Stable Disposition: HOME Patient Education Materials: Anemia (ED) Print Language: ICELANDIC Referrals: Amita eLigh NP [Primary Care Provider] - Quoc Blackmon MD [Medical Doctor] - (as scheduled) Additional Instructions: You will receive 2 units of packed red blood cells today, for a hemoglobin of 7.0 Dr. Wright is the physician on duty. The blood will be transfused in the hospital, and Dr. Wright will discharge you once the blood has infused. Return to the ER if you have any new or worsening symptoms. - Billing Disposition and Condition Condition: STABLE Disposition: Home - Attestation Statements Document Initiated by Melisa: Yes Documenting Scribe: Amber Hernandez Provider For Whom Melisa is Documenting (Include Credential): Dr. Alyson Yan MD Scribe Attestation: Amber Pena scribed for Dr. Alyson Yan MD on 02/13/19 at 0054. Scribe Documentation Reviewed: Yes Provider Attestation: The documentation as recorded by the Amber tomlin accurately reflects the service I personally performed and the decisions made by me, Dr. Alyson Yan MD Status of Scribe Document: Viewed
[2019-01-22 11:23] LABS: ABS Lymphocytes 0.2 10^3/ul (1.0-4.8); ABS Monocytes 0.4 10^3/ul (0-0.8); ABS Neutrophils 6.9 10^3/ul (1.5-7.7); Eosinophil % 0.3 %; Hematocrit 22 % (42-52); Mean Corpuscular HGB Conc 32 g/dL (31-36); Mean Corpuscular Hemoglobin 24 pg (27-31); Mean Corpuscular Volume 76 fL (80-94); Platelet Count 399 10^3/uL (150-450); Red Cell Distribution Width 21 % (10-15); White Blood Count 7.6 10^3/uL (3.5-10.8)
[2019-01-22 11:31] LABS: INR 1.12 (0.82-1.09)
[2019-01-22 11:42] LABS: ALT 51 U/L (7-52); AST 46 U/L (13-39); Albumin 2.6 g/dL (3.2-5.2); Alkaline Phosphatase 93 U/L (34-104); Anion Gap 8 mmol/L (2-11); BUN/Creatinine Ratio 19.2 (8-20); Blood Urea Nitrogen 14 mg/dL (6-24); CO2 Carbon Dioxide 24 mmol/L (22-32); Calcium 7.9 mg/dL (8.6-10.3); Chloride 96 mmol/L (101-111); Creatine Kinase < 10 U/L (10-223); EGFR African American 126.4 (>60); EGFR Non-African American 104.5 (>60); Globulin 2.5 g/dL (2-4); Glucose 163 mg/dL (70-100); Potassium 3.6 mmol/L (3.5-5.0); Sodium 128 mmol/L (135-145); Total Protein 5.1 g/dL (6.4-8.9); Troponin I 0.02 ng/mL (<0.04)
[2019-01-22 12:34] VITALS: BP 84/59
== END 2019-01-22 12:35 | disposition home or self-care (01) ==
LOC: ED 10:27
DX: D64.9 Anemia, unspecified (principal); C43.59 Malignant melanoma of other part of trunk; C79.9 Secondary malignant neoplasm of unspecified site; I10 Essential (primary) hypertension; Z79.82 Long term (current) use of aspirin; Z79.899 Other long term (current) drug therapy; Z79.891 Long term (current) use of opiate analgesic; Z87.891 Personal history of nicotine dependence; K44.9 Diaphragmatic hernia without obstruction or gangrene; R58 Hemorrhage, not elsewhere classified; I44.7 Left bundle-branch block, unspecified; I95.9 Hypotension, unspecified
CPT/HCPCS: 36415; 71045; 80053; 82550; 83605; 83735; 83880; 84484; 85025; 85610; 85730; 86140; 86850; 86900; 86901; 86922; 93005; 96360; 96361; 99282; J1642; P9040

== ENCOUNTER 2019-02-05 11:42 | Emergency (ER) | payer MEDICARE ==
[2019-02-05] MEDS ORDERED: NS 0.9% 1000 ML** 1,000 ML IV ONE (12:20)
--- NOTE | 2019-02-05 12:21 | ED ---
Complex/Multi-Sys Presentation - HPI Summary HPI Summary: Pt. is a 78 y.o male who presents to the ER for generalized weakness. Pt. has a hx of metastatic melanoma. Pt. currently not receiving chemo or radiation. Pt. denies fever, cp, sob, abd. pain, N/V/D, urinary sxs. Pt. states today he was unable to walk to the bathroom secondary to weakness. Pt. lives with his son. Sxs are moderate in severity. No current modifying factors. - History Of Current Complaint Chief Complaint: EDGeneral Time Seen by Provider: 02/05/19 12:13 Hx Obtained From: Patient - Allergies/Home Medications Allergies/Adverse Reactions: Allergies Allergy/AdvReac Type Severity Reaction Status Date / Time bee venom protein (honey bee) Allergy Anaphylatic Verified 02/05/19 11:48 Shock Home Medications: Home Medications Pravastatin Sodium 20 mg PO DAILY 02/05/19 [History Confirmed 02/05/19] PMH/Surg Hx/FS Hx/Imm Hx Previously Healthy: No Endocrine/Hematology History: Denies: Hx Diabetes Cardiovascular History: Reports: Hx Hypertension Denies: Hx Pacemaker/ICD Respiratory History: Denies: Hx Chronic Obstructive Pulmonary Disease (COPD) History: Denies: Hx Dialysis, Hx Renal Disease Sensory History: Denies: Hx Hearing Aid Psychiatric History: Denies: Hx Panic Disorder - Cancer History Cancer Type, Location and Year: Melanoma 05/2016 Hx Chemotherapy: No Hx Radiation Therapy: No - Surgical History Surgery Procedure, Year, and Place: Melanoma excision left shoulder and lymph nodes from left axilla. PowerPort placement 05/2016 AND REPLACED 07/2018. Bladder Rupture 12/2016. PROSTECTOMY 04/2017 Infectious Disease History: No Infectious Disease History: Denies: Traveled Outside the [place] in Last 30 Days - Family History Known Family History: Positive: Non-Contributory Negative: Cardiac Disease, Renal Disease - Social History Occupation: Retired Lives: With Family Alcohol Use: Rare Hx Substance Use: No Substance Use Type: Reports: None Hx Tobacco Use: Yes Smoking Status (MU): Former Smoker Review of Systems Constitutional: Negative Negative: Fever, Chills ENT: Negative Cardiovascular: Negative Respiratory: Negative Gastrointestinal: Negative Genitourinary: Negative Musculoskeletal: Other - generalized weakness. Skin: Negative Neurological: Negative All Other Systems Reviewed And Are Negative: Yes Physical Exam Triage Information Reviewed: Yes Vital Signs On Initial Exam: Initial Vitals Temp Pulse Resp BP Pulse Ox 98.8 F 104 16 102/65 99 02/05/19 11:44 02/05/19 11:44 02/05/19 11:44 02/05/19 11:44 02/05/19 11:44 Vital Signs Reviewed: Yes Appearance: Positive: Ill-Appearing, Thin - Pt. lying in bed in NAD. Answers questions appropriately. Son present. Skin: Positive: Warm, Dry Head/Face: Positive: Normal Head/Face Inspection Eyes: Positive: Normal, EOMI Neck: Positive: Supple Respiratory/Lung Sounds: Positive: Clear to Auscultation, Breath Sounds Present Cardiovascular: Positive: Normal, RRR Abdomen Description: Positive: Other: - Marked tenderness in all quadrants with guarding. Neurological: Positive: Normal, Alert, Oriented to Person Place, Time, CN Intact II-III Psychiatric: Positive: Affect/Mood Appropriate Diagnostics - Vital Signs Vital Signs Temp Pulse Resp BP Pulse Ox 02/05/19 11:44 98.8 F 104 16 102/65 99 - Laboratory Result Diagrams: 02/05/19 12:53 02/05/19 12:53 Lab Statement: Any lab studies that have been ordered have been reviewed, and results considered in the medical decision making process. Complex Multi-Symp Course/Dx Course Of Treatment: Patient presenting with generalized weakness. Is afebrile with stable vital signs. Pt. started on IV fluids. ECG done at 1427 shows a sinus tachycardia of 96bpm, left axis deviation, LBBB, no STEMI, similar to prior tracing. CT per radiology: IMPRESSION: THERE HAS BEEN SIGNIFICANT INTERVAL PROGRESSION OF METASTATIC DISEASE, WITH NORMAL HEPATIC. PARENCHYMAL LESIONS THAT ARE NEW FROM THE PREVIOUS EXAMINATION, PROGRESSION OF THE CYSTIC. MASS IN THE GASTROHEPATIC LIGAMENT, AND PROGRESSION OF A SOLID MASS THAT INVOLVES THE. JEJUNUM. THIS SOLID MASS NOW EXTENDS TO THE SKIN SURFACE. THERE IS GAS DENSITY WITHIN THIS. MASS CONSISTENT WITH COMMUNICATION WITH HOLLOW VISCUS. WBC 11, H and H 8.2 and 26, Na 125, lactic 2.3, trop 0.05, CRP 162. CXR negative for acute findings per radiology. U/A negative for infection. Case discussed with Dr. Blackmon, he recommends admission for IV hydration and he will consult tomorrow for likely palliative care. Case discussed with hospitalist. Dr. Watson examined pt. in the ER and discussed case again with Dr. Blackmon. Plan now per Dr. Watson is another 500cc of NS and dc home at this point. Pt. will f.u with Dr. Blackmon tomorrow. Pt. happy to be going home. Will return to ER if sxs change or worsen. - Diagnoses Provider Diagnoses: Weakness, Hyponatremia Discharge - Sign-Out/Discharge Documenting (check all that apply): Patient Departure Patient Received Moderate/Deep Sedation with Procedure: No - Discharge Plan Condition: Improved Disposition: HOME Patient Education Materials: Hyponatremia (ED) Referrals: Amita Leigh NP [Primary Care Provider] - Quoc Blackmon MD [Medical Doctor] - Additional Instructions: Call Dr. Blackmon's office tomorrow for an appointment Return to ER if symptoms change or worsen - Billing Disposition and Condition Condition: IMPROVED Disposition: Home
[2019-02-05 13:09] LABS: ABS Lymphocytes 0.4 10^3/ul (1.0-4.8); ABS Monocytes 0.6 10^3/ul (0-0.8); ABS Neutrophils 9.9 10^3/ul (1.5-7.7); Hematocrit 26 % (42-52); Hemoglobin 8.2 g/dL (14.0-18.0); Lymphocyte % 3.7 %; Mean Corpuscular HGB Conc 32 g/dL (31-36); Mean Corpuscular Hemoglobin 25 pg (27-31); Mean Corpuscular Volume 79 fL (80-94); Mean Platelet Volume 7.1 fL (7.4-10.4); Nucleated Red Blood Cells % 0.1; Platelet Count 156 10^3/uL (150-450); Red Blood Count 3.24 10^6 /uL (4.18-5.48); Red Cell Distribution Width 21 % (10-15)
[2019-02-05 13:23] LABS: ALT 46 U/L (7-52); AST 53 U/L (13-39); Albumin 2.5 g/dL (3.2-5.2); Alkaline Phosphatase 219 U/L (34-104); Anion Gap 9 mmol/L (2-11); BUN/Creatinine Ratio 25.4 (8-20); Blood Urea Nitrogen 18 mg/dL (6-24); C Reactive Protein 167.73 mg/L (<8.01); CO2 Carbon Dioxide 23 mmol/L (22-32); Calcium 8.4 mg/dL (8.6-10.3); Chloride 93 mmol/L (101-111); EGFR African American 130.5 (>60); EGFR Non-African American 107.9 (>60); Globulin 2.4 g/dL (2-4); Glucose 141 mg/dL (70-100); Magnesium 1.8 mg/dL (1.9-2.7); Potassium 4.3 mmol/L (3.5-5.0); Sodium 125 mmol/L (135-145); Total Protein 4.9 g/dL (6.4-8.9)
[2019-02-05 13:37] LABS: Troponin I 0.05 ng/mL (<0.04)
[2019-02-05] MEDS ORDERED: Iohexol 300* (CONTRAST) 10 ML SDV IV ONE (13:40)
[2019-02-05 15:23] LABS: Troponin I 0.04 ng/mL (<0.04)
[2019-02-05 15:27] LABS: Urine Appearance Clear; Urine Bilirubin Negative (Negative); Urine Blood Negative (Negative); Urine Color Yellow; Urine Glucose Negative (Negative); Urine Ketones Negative (Negative); Urine Nitrite Negative (Negative); Urine Protein Negative (Negative); Urine Specific Gravity 1.031 (1.010-1.030); Urine Urobilinogen Negative (Negative)
[2019-02-05] MEDS ORDERED: Famotidine TAB* 20 MG PO ONE (16:00)
[2019-02-05] MEDS ORDERED: NS 0.9% 500 ML* 500 ML IV ONE (17:16)
[2019-02-05 18:42] VITALS: BP 109/66
--- NOTE | 2019-02-05 21:28 | CONS ---
CONSULTATION REPORT: DATE OF CONSULT: 02/05/19 SERVICE REQUESTING CONSULTATION: Emergency room. REASON FOR CONSULT: Fatigue. SOURCE OF INFORMATION: History obtained from interview with the patient, review of [facility] records, review of records in [facility]_, discussion with Dr. Blackmon. RELIABILITY: Good. HISTORY OF PRESENT ILLNESS: This is a 78-year-old gentleman with past medical history of metastatic melanoma, diagnosed in June 2016, who has progressed despite multiple lines of immunotherapy, had been on salvage temozolomide, but had increasing abdominal mass, persistent GI bleeding. He was last seen on 02/[address] Blackmon in clinic, been feeling more fatigued, run down, although his rectal bleeding had been stable. At that time, it is recommended that he stop therapy as it was doing more harm than good. Reportedly, he had goals of care discussion. DNR and a MOLST was filled out at that time. The patient presented today indicating that he was having a bad day, did not feel steady on his feet. At baseline, the most active thing he does is go to the bathroom. He is currently living with his son at home. In the emergency room, he was found relatively hypotensive, received a litre of fluid with improvement when seen by this author, indicated he felt better than on presentation and would prefer to be at home if there was an option. I did discuss with Dr. Blackmon, who indicated the patient did not wish to remain in the hospital, discharge home was appropriate. The patient denies currently any pain, shortness of breath, nausea , vomiting, lightheadedness, loss of consciousness, near loss of consciousness, rectal bleeding, or other GI symptoms. He has had no recent fevers, chills or cough. PAST MEDICAL HISTORY: Includes metastatic melanoma, rectal bleeding, anemia, hypertension, BPH, and hypothyroidism. HOME MEDICATIONS: From ___[facility] med rec___ 1. Bisacodyl. 2. Colace. 3. Compazine p.r.n. 4. Finasteride 5 mg. 5. Motrin 600 mg p.r.n. 6. Levothyroxine 125 mcg. 7. Lorazepam 1 tab p.r.n. 8. Naproxen 500 mg one daily as needed. 9. Oxycodone 5 mg 6 times a day as needed. 10. Pravastatin 20 mg at bedtime. 11. Ranitidine 150 mg twice daily. 12. Senna 1 to 2 tabs at bedtime as needed. 13. Trazodone 1 to 2 tabs 50 mg at bedtime as needed. 14. Zofran as needed. ALLERGIES: BEE VENOM. FAMILY HISTORY: No history of melanoma. SOCIAL HISTORY: Nonsmoker. PHYSICAL EXAM: Vitals when seen by this author, 124/75, heart rate 95, respiratory rate is 20, T-max in the emergency room is 98.8, he is 98% on room air. Elderly man, looks older than stated age, interactive, pleasant, in no apparent distress. His oropharynx is clear. He has moist mucous membranes. Sclerae anicteric. He has a soft 2/6 systolic ejection murmur, loudest over the right upper sternal border. His lungs are clear to auscultation. His abdomen is soft, nontender. Mild distention. Mild tenderness to deep palpation throughout. Extremities are warm and well perfused. He has less than 2 second capillary refill. He has no clubbing, cyanosis, or edema. He is alert and oriented x3. DIAGNOSTIC STUDIES/LAB DATA: Labs reviewed, notable for leukocytosis, white blood cell count of 11.0, hemoglobin is 8.2. Sodium 125. Lactic acid 2.3. Troponin I 0.04 on repeat. Urine is bland. CT abdomen and pelvis, impression: Significant interval progression of metastatic disease. Chest x-ray: Hiatal hernia, no active cardiopulmonary disease. ASSESSMENT AND PLAN: This is a 78-year-old man with history of metastatic melanoma progressive despite immunotherapy, now pursuing palliative measures. We did discuss hospice care as did Dr. Blackmon, which the patient and son are interested in. Dr. Blackmon is to arrange a followup in the next 24 to 48 hours, at which time, we will continue discussing options for sign-on too. He feels the symptoms have largely abated, although he does still feel fatigued, we discussed likely in the setting of progressive metastatic melanoma. He has no other symptomatology, which would receive palliative measures at this time. He is in agreement with going home. I do recommend additional 500 cc of normal saline prior to discharge to help with his dehydration as oral intake is poor at home. The patient and ED are in agreeance with this plan. Did discuss reasons to return to the emergency room with the patient and son, which did include fevers, chills or night sweats, difficulty breathing, symptoms not controlled at home, which could include chest pain, bleeding, loss of consciousness, near loss of consciousness, or inability to obtain or tolerate his medications. They acknowledge understanding. TIME SPENT: Greater than 60 minutes was spent on this consultation, greater than half was spent [id number] with the patient. [id number]/[facility] #: [id number] RICARDO
== END 2019-02-05 18:41 | disposition home or self-care (01) ==
LOC: ED 11:42
DX: R53.1 Weakness (principal); E87.1 Hypo-osmolality and hyponatremia; R10.817 Generalized abdominal tenderness; K44.9 Diaphragmatic hernia without obstruction or gangrene; R00.0 Tachycardia, unspecified; I44.7 Left bundle-branch block, unspecified; E03.9 Hypothyroidism, unspecified; I10 Essential (primary) hypertension; N40.0 Benign prostatic hyperplasia without lower urinary tract symptoms; Z85.820 Personal history of malignant melanoma of skin; Z91.030 Bee allergy status; Z87.891 Personal history of nicotine dependence
CPT/HCPCS: 36415; 71045; 74177; 80053; 81003; 83605; 83735; 84484; 85025; 86140; 93005; 96361; 96374; 99284; A9270-GY; J1642; Q9967